=== PATIENT | male | born 1975 | race Hispanic/Latino ===

== ENCOUNTER 2018-05-14 22:07 | Emergency (ER) | payer SELFPAY ==
[~2018-05-14 22:07] MED LIST: ISOVUE-370 76%-LOCM 1 ML ONE
[2018-05-14 22:32] LABS: #Basophils 0.1 thou/uL (0.0-0.2); #Eosinphils 0.4 thou/uL (0.0-0.7); #Monocytes 0.6 thou/uL (0.11-0.59); #Neutrophils 5.2 thou/uL (1.40-6.50); %Basophils 1.3 % (0.0-1.0); %Eosinophils 4.7 % (0.0-10.0); %Monocytes 6.8 % (0.0-10.0); %Neutrophils 55.2 % (42.0-75.0); Hemoglobin 15.2 g/dL (14.0-18.0); Mean Corpuscular HGB CONC 32.5 g/dL (32.0-36.0); Mean Corpuscular Hemoglobin 29.1 pg (27.0-31.0); Mean Corpuscular Volume 89.7 fL (78.0-98.0); Mean Platelet Volume 7.1 fL (7.4-10.4); Platelet Count 329 thou/uL (130-400); RBC Distribution Width 12.7 % (11.5-14.5); Red Blood Cell (RBC) Count 5.22 mill/uL (4.70-6.10); White Blood Cell (WBC) Count 9.4 thou/uL (4.8-10.8)
[2018-05-14 22:39] LABS: INR-International Normal Ratio 0.9; Prothrombin Time 12.7 SEC (12.0-14.7)
[2018-05-14 22:51] LABS: Alcohol 61 mg/dL (Less than 10); Anion Gap 18 mmol/L (10-20); BUN (Urea Nitrogen) 13 mg/dL (8.9-20.6); Calc. Creatinine Clearance 0 mL/min (70-130); Calcium 9.3 mg/dL (7.8-10.44); Carbon Dioxide 21 mmol/L (22-29); Chloride 105 mmol/L (98-107); Estimated GFR-MDRD 80; Glucose 93 mg/dL (70-105); Potassium 3.8 mmol/L (3.5-5.1); Sodium 140 mmol/L (136-145)
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
[2018-05-14] MEDS ORDERED: Adacel (T-DAP) 0.5 ML SYRINGE ONE (23:20)
[2018-05-14] MEDS ORDERED: Morphine 4 MG/ML VIAL ONE (23:20)
[2018-05-14] MEDS ORDERED: Ondansetron PF 4 MG/2 ML Vial ONE (23:20)
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
== END 2018-05-15 00:46 ==
LOC: ERS 22:07
DX: S61.210A Laceration without foreign body of right index finger without damage to nail, initial encounter (principal); S40.011A Contusion of right shoulder, initial encounter; S50.812A Abrasion of left forearm, initial encounter; S80.812A Abrasion, left lower leg, initial encounter; F32.9 Major depressive disorder, single episode, unspecified; V69.9XXA Occupant (driver) (passenger) of heavy transport vehicle injured in unspecified traffic accident, initial encounter
CPT/HCPCS: 70450; 71260; 72125; 74177; 80048; 80307; 85025; 85610; 86850; 86900; 86901; 90471; 90715; 96361; 96374; 96375; G0390; J2270; J2405